=== PATIENT | male | born 1985 | race Caucasian/White ===

== ENCOUNTER 2019-12-21 07:54 | Observation (INO) | payer OTHER ==
[2019-12-21] MEDS ORDERED: SODIUM CHLORIDE 0.9% 1,000 ML IV STA (08:03)
[2019-12-21] MEDS ORDERED: HYDROmorphone 0.5 MG/0.5 ML SYRINGE IVP STA (08:03)
[2019-12-21] MEDS ORDERED: PANTOPRAZOLE 40 MG/10 ML VIAL IVP STA (08:03)
--- NOTE | 2019-12-21 08:06 | ED ---
GI Bleed HPI - General Stated complaint: chest discomfort/vomiting blood Time Seen by Provider: 12/21/19 07:57 Source: RN notes reviewed, old records reviewed - History of Present Illness Initial comments: Patient is a 34-year-old male presents emergency department today for complaints of nausea and vomiting intermittently for the past 3 weeks. He states that he was evaluated by overdose or started on Protonix and Zofran and this past week. Patient reports that he's had persistent vomiting and has not been able to follow-up with a GI doctor contacted GI doctor for follow-up. He also reports she's had some dark stools. Patient is not on blood thinners. He denies any history of alcohol use. He does report that he is an occasional smoker. He states that he has been very dehydrated. - Related Data Home Medications Medication Instructions Recorded Confirmed Omeprazole [PriLOSEC] 40 mg PO DAILY 12/21/19 12/21/19 Ondansetron [Zofran ODT] 4 mg PO Q8H PRN 12/21/19 12/21/19 Allergies Allergy/AdvReac Type Severity Reaction Status Date / Time No Known Allergies Allergy Verified 12/21/19 08:34 Review of Systems ROS Statement: Those systems with pertinent positive or pertinent negative responses have been documented in the HPI. ROS Other: All systems not noted in ROS Statement are negative. Past Medical History Past Medical History: No Reported History History of Any Multi-Drug Resistant Organisms: None Reported Past Surgical History: No Surgical Hx Reported Past Psychological History: No Psychological Hx Reported Smoking Status: Current every day smoker Past Alcohol Use History: Rare General Exam - General Exam Comments Initial Comments: Patient 4-year-old male. Alert and oriented 3. General appearance: alert, in no apparent distress Head exam: Present: atraumatic, normocephalic, normal inspection Eye exam: Present: normal appearance, PERRL, EOMI. Absent: scleral icterus, conjunctival injection, periorbital swelling ENT exam: Present: normal exam Neck exam: Present: normal inspection. Absent: tenderness, meningismus, lymphadenopathy Respiratory exam: Present: normal lung sounds bilaterally. Absent: respiratory distress, wheezes, rales, rhonchi, stridor Cardiovascular Exam: Present: regular rate, normal rhythm, normal heart sounds. Absent: systolic murmur, diastolic murmur, rubs, gallop, clicks GI/Abdominal exam: Present: soft, tenderness (epigastric tenderness), normal bowel sounds. Absent: distended, guarding, rebound, rigid Extremities exam: Present: normal inspection, full ROM, normal capillary refill. Absent: tenderness, pedal edema, joint swelling, calf tenderness Back exam: Present: normal inspection Neurological exam: Present: alert, oriented X3, CN II-XII intact Psychiatric exam: Present: normal affect, normal mood Skin exam: Present: warm, dry, intact, normal color. Absent: rash Course Vital Signs 12/21/19 08:03 Temperature 98.2 F Pulse Rate 71 Respiratory 18 Rate Blood Pressure 127/90 O2 Sat by Pulse 98 Oximetry Medical Decision Making - Medical Decision Making There is actually absent today for nausea and vomiting with epigastric abdominal pain for the past 3 weeks. Was seen at [facility] diagnosed gastritis and discharged with Protonix and Zofran this week. He reports isn't helping. Emergency emergency department with some bilious vomitus. The Patient labwork was repaired does have evidence of pancreatitis with lipase is 1300. Patient denies any history of alcohol use. Ultrasound of the gallbladder is completed showing fatty infiltration of the liver but no other acute process. Patient was informed of these results. Patient was admitted at this time with consult to GI. Patient will be remaining nothing by mouth. - Lab Data Result diagrams: 12/21/19 08:00 12/21/19 08:00 Lab Results 12/21/19 12/21/19 12/21/19 Range/Units 08:00 08:00 08:00 WBC 9.5 (3.8-10.6) k/uL RBC 4.98 (4.30-5.90) m/uL Hgb 14.7 (13.0-17.5) gm/dL Hct 44.6 (39.0-53.0) % MCV 89.6 (80.0-100.0) fL MCH 29.5 (25.0-35.0) pg MCHC 32.9 (31.0-37.0) g/dL RDW 12.4 (11.5-15.5) % Plt Count 327 (150-450) k/uL Neutrophils % 77 % Lymphocytes % 14 % Monocytes % 7 % Eosinophils % 1 % Basophils % 0 % Neutrophils # 7.3 (1.3-7.7) k/uL Lymphocytes # 1.3 (1.0-4.8) k/uL Monocytes # 0.6 (0-1.0) k/uL Eosinophils # 0.1 (0-0.7) k/uL Basophils # 0.0 (0-0.2) k/uL PT 11.1 (9.0-12.0) sec INR 1.1 (<1.2) APTT 21.7 L (22.0-30.0) sec Sodium 142 (137-145) mmol/L Potassium 3.7 (3.5-5.1) mmol/L Chloride 107 (98-107) mmol/L Carbon Dioxide 25 (22-30) mmol/L Anion Gap 10 mmol/L BUN 19 (9-20) mg/dL Creatinine 1.13 (0.66-1.25) mg/dL Est GFR (CKD-EPI)AfAm >90 (>60 ml/min/1.73 sqM) Est GFR (CKD-EPI)NonAf 84 (>60 ml/min/1.73 sqM) Glucose 117 H (74-99) mg/dL Calcium 8.9 (8.4-10.2) mg/dL Magnesium 2.2 (1.6-2.3) mg/dL Total Bilirubin 0.9 (0.2-1.3) mg/dL AST 21 (17-59) U/L ALT 23 (4-49) U/L Alkaline Phosphatase 54 (38-126) U/L Total Protein 6.9 (6.3-8.2) g/dL Albumin 4.2 (3.5-5.0) g/dL Lipase 1387 H (23-300) U/L Gastric Occult Blood (Negative) Stool Occult Blood (Negative) Blood Type Blood Type Confirm Blood Type Recheck Bld Type Recheck Status Antibody Screen Spec Expiration Date 12/21/19 12/21/19 12/21/19 Range/Units 08:00 08:06 08:14 WBC (3.8-10.6) k/uL RBC (4.30-5.90) m/uL Hgb (13.0-17.5) gm/dL Hct (39.0-53.0) % MCV (80.0-100.0) fL MCH (25.0-35.0) pg MCHC (31.0-37.0) g/dL RDW (11.5-15.5) % Plt Count (150-450) k/uL Neutrophils % % Lymphocytes % % Monocytes % % Eosinophils % % Basophils % % Neutrophils # (1.3-7.7) k/uL Lymphocytes # (1.0-4.8) k/uL Monocytes # (0-1.0) k/uL Eosinophils # (0-0.7) k/uL Basophils # (0-0.2) k/uL PT (9.0-12.0) sec INR (<1.2) APTT (22.0-30.0) sec Sodium (137-145) mmol/L Potassium (3.5-5.1) mmol/L Chloride (98-107) mmol/L Carbon Dioxide (22-30) mmol/L Anion Gap mmol/L BUN (9-20) mg/dL Creatinine (0.66-1.25) mg/dL Est GFR (CKD-EPI)AfAm (>60 ml/min/1.73 sqM) Est GFR (CKD-EPI)NonAf (>60 ml/min/1.73 sqM) Glucose (74-99) mg/dL Calcium (8.4-10.2) mg/dL Magnesium (1.6-2.3) mg/dL Total Bilirubin (0.2-1.3) mg/dL AST (17-59) U/L ALT (4-49) U/L Alkaline Phosphatase (38-126) U/L Total Protein (6.3-8.2) g/dL Albumin (3.5-5.0) g/dL Lipase (23-300) U/L Gastric Occult Blood (Negative) Stool Occult Blood Negative (Negative) Blood Type A Positive Blood Type Confirm A Positive Blood Type Recheck No Previous Record Bld Type Recheck Status CABO Indicated Antibody Screen NEGATIVE Spec Expiration Date 12/24/2019 - 229912/21/19 Range/Units 08:14 WBC (3.8-10.6) k/uL RBC (4.30-5.90) m/uL Hgb (13.0-17.5) gm/dL Hct (39.0-53.0) % MCV (80.0-100.0) fL MCH (25.0-35.0) pg MCHC (31.0-37.0) g/dL RDW (11.5-15.5) % Plt Count (150-450) k/uL Neutrophils % % Lymphocytes % % Monocytes % % Eosinophils % % Basophils % % Neutrophils # (1.3-7.7) k/uL Lymphocytes # (1.0-4.8) k/uL Monocytes # (0-1.0) k/uL Eosinophils # (0-0.7) k/uL Basophils # (0-0.2) k/uL PT (9.0-12.0) sec INR (<1.2) APTT (22.0-30.0) sec Sodium (137-145) mmol/L Potassium (3.5-5.1) mmol/L Chloride (98-107) mmol/L Carbon Dioxide (22-30) mmol/L Anion Gap mmol/L BUN (9-20) mg/dL Creatinine (0.66-1.25) mg/dL Est GFR (CKD-EPI)AfAm (>60 ml/min/1.73 sqM) Est GFR (CKD-EPI)NonAf (>60 ml/min/1.73 sqM) Glucose (74-99) mg/dL Calcium (8.4-10.2) mg/dL Magnesium (1.6-2.3) mg/dL Total Bilirubin (0.2-1.3) mg/dL AST (17-59) U/L ALT (4-49) U/L Alkaline Phosphatase (38-126) U/L Total Protein (6.3-8.2) g/dL Albumin (3.5-5.0) g/dL Lipase (23-300) U/L Gastric Occult Blood Positive (Negative) Stool Occult Blood (Negative) Blood Type Blood Type Confirm Blood Type Recheck Bld Type Recheck Status Antibody Screen Spec Expiration Date - Radiology Data Radiology results: report reviewed US of the gallbladder shows no acute findings. Heterogeneous hyperechoic appearance of the liver fevers by infiltration underlying hepatocellular disease. Correlate clinically with liver lab values. Disposition Clinical Impression: Pancreatitis Disposition: ADMITTED IP TO THIS [facility] Condition: Good Instructions (If sedation given, give patient instructions): Pancreatitis (ED) Is patient prescribed a controlled substance at d/c from ED?: No Referrals: None,Stated [Primary Care Provider] - 1-2 days Time of Disposition: 09:45
[2019-12-21] MEDS ORDERED: METOCLOPRAMIDE 5 MG/ML 2 ML VIAL IVP STA (08:21)
[2019-12-21] MEDS ORDERED: diphenhydrAMINE 50 MG/ML 1 ML VIAL IVP STA (08:21)
[2019-12-21] MEDS: SODIUM CHLORIDE 0.9% 1,000 ML IV SCH ×2 (08:21→19:21)
[2019-12-21 08:23] LABS: Basophils % (A) 0 %; Eosinophils # (A) 0.1 k/uL (0-0.7); Eosinophils % (A) 1 %; HCT 44.6 % (39.0-53.0); HGB 14.7 gm/dL (13.0-17.5); Lymphocytes # (A) 1.3 k/uL (1.0-4.8); Lymphocytes % (A) 14 %; MCH 29.5 pg (25.0-35.0); MCHC 32.9 g/dL (31.0-37.0); MCV 89.6 fL (80.0-100.0); Mean Platelet Volume 7.3; Monocytes # (A) 0.6 k/uL (0-1.0); Monocytes % (A) 7 %; Neutrophils # (A) 7.3 k/uL (1.3-7.7); Neutrophils % (A) 77 %; Platelet Count 327 k/uL (150-450); RBC 4.98 m/uL (4.30-5.90); RDW 12.4 % (11.5-15.5); WBC 9.5 k/uL (3.8-10.6)
[2019-12-21 08:35] LABS: INR 1.1 (<1.2); Prothrombin Time 11.1 sec (9.0-12.0)
[2019-12-21 08:41] LABS: ALT 23 U/L (4-49); AST 21 U/L (17-59); African American GFR (CKD) >90 (>60 ml/min/1.73 sqM); Albumin 4.2 g/dL (3.5-5.0); Alkaline Phosphatase 54 U/L (38-126); Anion Gap 10 mmol/L; Blood Urea Nitrogen 19 mg/dL (9-20); Calcium 8.9 mg/dL (8.4-10.2); Carbon Dioxide 25 mmol/L (22-30); Chloride 107 mmol/L (98-107); Glucose 117 mg/dL (74-99); Magnesium 2.2 mg/dL (1.6-2.3); Non-African American GFR(CKD) 84 (>60 ml/min/1.73 sqM); Potassium 3.7 mmol/L (3.5-5.1); Sodium 142 mmol/L (137-145); Total Bilirubin 0.9 mg/dL (0.2-1.3); Total Protein 6.9 g/dL (6.3-8.2)
[2019-12-21 08:44] LABS: Partial Thromboplastin Time 21.7 sec (22.0-30.0)
--- NOTE | 2019-12-21 09:41 | US ---
EXAMINATION TYPE: US gallbladder DATE OF EXAM: 12/21/2019 COMPARISON: NONE CLINICAL HISTORY: ab pain. Generalized abd pain; blood noted with vomiting x 3 weeks; diarrhea recent ly EXAM MEASUREMENTS: Liver Length: 13.3 cm Gallbladder Wall: 0.1 cm CBD: 0.4 cm Right Kidney: 10.21 x 6.4 x 4.7 cm Pancreas: Tail obscured by overlying bowel gas; hyperechoic appearance Liver: hyperechoic to right renal cortex suggests fatty liver Gallbladder: wnl Evidence for sonographic Vu's sign: no CBD: wnl Right Kidney: wnl Visualized liver is heterogeneously hyperechoic. No surrounding ascites. Evaluation for focal masses suboptimal due to the heterogeneity. Gallbladder seen without shadowing mobile gallstones. IMPRESSION: No acute findings are evident. Heterogeneous hyperechoic appearance of liver favors produ ct of diffuse fatty infiltration, underlying hepatocellular disease is not excluded. Correlate clinic ally and with liver lab values.
[2019-12-21] MEDS ORDERED: NALOXONE 0.4 MG/ML 1 ML VIAL IV PRN ×2 (09:46→11:34)
[2019-12-21] MEDS ORDERED: HYDROmorphone 0.5 MG/0.5 ML SYRINGE IVP PRN (09:46)
[2019-12-21] MEDS ORDERED: ACETAMINOPHEN TAB 325 MG TAB PO PRN (09:46)
[2019-12-21] MEDS ORDERED: KETOROLAC 30 MG/ML 1 ML VIAL IVP PRN (09:46)
[2019-12-21] MEDS ORDERED: IBUPROFEN 400 MG TAB PO PRN (09:46)
--- NOTE | 2019-12-21 10:01 | XR ---
EXAMINATION TYPE: XR KUB DATE OF EXAM: 12/21/2019 COMPARISON: NONE HISTORY: Pain and vomiting TECHNIQUE: One view abdominal series FINDINGS: The osseous structures are intact. The bowel gas pattern is nonspecific. Lung bases are clear. Roun ded density in the left upper quadrant nonspecific. IMPRESSION: 1. Nonspecific abdomen. Consider CT scan to assess for rounded density in the left upper quadrant.
--- NOTE | 2019-12-21 11:37 | P.HPIM ---
History of Present Illness H&P Date: 12/21/19 Chief Complaint: pain 34-year-old male presents emergency department today for complaints of nausea and vomiting intermittently for the past 3 weeks. Symptoms have been ongoing on and off for the past 3 years. He also has been having abdominal pain that is worse with food. Also has been experiencing acid burning behind his chest. No fevers or chills. He smokes marijuana on a daily basis. Denies alcohol use. He was never evaluated with an EGD in the past. In the emergency department his lipase was elevated at 1387. Abdominal ultrasound showed fatty liver infiltration with possible mass in the left side of abdomen. He was admitted for further evaluation and treatment of acute pancreatitis. Review of Systems Complete review of system performed, pertinent positives per HPI, otherwise negative Past Medical History Past Medical History: No Reported History History of Any Multi-Drug Resistant Organisms: None Reported Past Surgical History: No Surgical Hx Reported Past Psychological History: No Psychological Hx Reported Smoking Status: Current every day smoker Past Alcohol Use History: Rare - Past Family History Father History Unknown: Yes Mother Additional Family Medical History / Comment(s): Mother is obese. Medications and Allergies Home Medications Medication Instructions Recorded Confirmed Type Omeprazole [PriLOSEC] 40 mg PO DAILY 12/21/19 12/21/19 History Ondansetron [Zofran ODT] 4 mg PO Q8H PRN 12/21/19 12/21/19 History Allergies Allergy/AdvReac Type Severity Reaction Status Date / Time No Known Allergies Allergy Verified 12/21/19 08:34 Physical Exam Vitals: Vital Signs Temp Pulse Resp BP Pulse Ox 12/21/19 10:20 62 16 124/73 99 12/21/19 08:03 98.2 F 71 18 127/90 98 Intake and Output 12/20/19 12/21/19 12/21/19 22:59 06:59 14:59 Other: Weight 99.79 kg Constitutional: No acute distress, conversant, pleasant Eyes:Anicteric sclerae, moist conjunctiva, no lid-lag, PERRLA, ENMT: Oropharynx clear, no erythema, exudates Neck: Supple, FROM, no masses, or JVD, No carotid bruits, No thyromegaly Lungs: Clear to auscultation, Clear to percussion, Normal respiratory effort, no accessory muscle use Cardiovascular: Heart regular in rate and rhythm, No murmurs, gallops, or rubs, No peripheral edema Abdominal: Soft, tender especially in the epigastric area, no guarding, rebound or rigidity, Normoactive bowel sounds, No hepatomegaly, No splenomegaly, No pal pable mass Skin: Normal temperature, tone, texture, turgor, no induration, No subcutaneous nodules, No rash, lesions, No ulcers Extremities: No digital cyanosis, No clubbing, Pedal pulses intact and symmetrical, Radial pulses intact and symmetrical, No calf tenderness Psychiatric: Alert and oriented to person, place and time, appropriate affect, intact judgement Neuro: Muscles Strength 5/5 in all 4 extremities, Sensation to light touch grossly present throughout, Cranial nerves II-XII grossly intact, no focal sensory deficits Results CBC & Chem 7: 12/21/19 08:00 12/21/19 08:00 Labs: Abnormal Lab Results - Last 24 Hours (Table) 12/21/19 12/21/19 Range/Units 08:00 08:00 APTT 21.7 L (22.0-30.0) sec Glucose 117 H (74-99) mg/dL Lipase 1387 H (23-300) U/L Assessment and Plan Plan: Acute pancreatitis IV fluids Pain control with Dilaudid IV Nothing by mouth Lipase in am Intractable nausea and vomiting with associated GERD IV protonix Rule out cyclic vomiting syndrome Consult GI for EGD Zofran when necessary Questionable left abdominal mass On ultrasound CT abdomen and pelvis with IV contrast Admit to inpatient, expected length of stay more than 2 more nights Anticipated disposition: Home Anticipated discharge: 2-3 days
[2019-12-21] MEDS: ONDANSETRON 4 MG/2 ML VIAL IVP PRN (13:49)
--- NOTE | 2019-12-21 15:05 | CONS ---
CONSULTATION DATE OF SERVICE: December 21, 2019. REQUESTING PHYSICIAN: Dr. Snyder. REASON FOR CONSULTATION: Epigastric pain, nausea, vomiting for the last 4 weeks duration. HISTORY OF PRESENT ILLNESS: The patient is a 34-year-old pleasant white male came to the emergency room complaining of severe nausea, vomiting for the last 4 weeks duration. He has severe epigastric discomfort and heartburn. He denies any dysphagia or odynophagia. He has been throwing up at least once or twice a day. He went to the emergency room at [facility] 2 days ago and was sent home with antiemetics. In the ER, was noted to have elevated lipase at 1387. He has been taking Motrin and Aleve for chronic back pain and headaches for the last several months. Denies any prior history of peptic ulcer disease. No prior history of pancreatitis. In a couple of episodes of emesis, he was noted to have coffee-grounds emesis and hence we are consulted. PAST MEDICAL HISTORY: Unremarkable. Past surgical history unremarkable. MEDICATIONS: At home none. ALLERGIES: No known drug allergies. SOCIAL HISTORY: Chronic smoker. Rarely drinks alcohol. FAMILY HISTORY: Father healthy. Mother obese. REVIEW OF SYSTEMS: CARDIOPULMONARY: No chest pain, shortness of breath. no dysuria or hematuria. MUSCULOSKELETAL unremarkable. Skin unremarkable. Endocrine unremarkable. Psychiatric unremarkable. NEUROLOGY: Unremarkable. ENT/VISION: Unremarkable. CONSTITUTIONAL: No recent weight loss. No fever, chills, night sweats. PHYSICAL EXAMINATION: Blood pressure is 125/73, pulse rate 82, temperature 98.2. HEENT examination unremarkable. Conjunctivae pink. Sclerae anicteric. Oral cavity no lesions. NECK no JVD or lymph node enlargement. Chest was clear to auscultation. HEART: Regular rate and rhythm. ABDOMEN: Soft. There was tenderness in the epigastric area. Bowel sounds are positive. No organomegaly. EXTREMITIES: No pedal edema. Skin no rashes. NEUROLOGIC: Alert and oriented x3. No focal deficits. LABS: WBC 9.5, hemoglobin 14.7, platelets normal. Basic metabolic panel is normal limits. Lipase is 1387. ALT, AST, T-bilirubin and alkaline phosphatase are within normal limits. Ultrasound of the gallbladder did show normal-appearing gallbladder with no negative Vu sign. CBD was normal and mild fatty liver noted. No gallstones seen. IMPRESSION: This is a patient who presents to hospital with chronic nausea, vomiting for the last 4 weeks duration with some episodes of coffee-ground emesis. He is noted to have mild elevation of lipase consistent with mild acute pancreatitis. He has been taking Motrin and Aleve for chronic headaches. Rule out possibility of peptic ulcer disease causing his symptoms and acute pancreatitis. No history of alcohol use. Normal serum transaminases makes it unlikely we are dealing with biliary pancreatitis. RECOMMENDATIONS: 1. Clear liquid diet. 2. Repeat amylase and lipase tomorrow. 3. Continue IV Protonix. 4. EGD tomorrow. 5. We will follow with you closely. Thank you for this consultation. MMODL / IJN: [id number] /
--- NOTE | 2019-12-21 15:16 | CT ---
EXAMINATION TYPE: CT abdomen pelvis w con DATE OF EXAM: 12/21/2019 COMPARISON: None INDICATION: Vomiting blood DLP: 1672.9 mGycm, Automated exposure control for dose reduction was used. CONTRAST: 100 mL of Isovue 300. Study performed without Oral Contrast TECHNIQUE: Axial images were obtained from above the diaphragm to the pubic rami in the axial plane a t 5 mm thick sections. Reconstructed images are reviewed on the computer in the coronal plane. FINDINGS: Limited CT sections are obtained the lung bases. The lung bases are clear. CT ABDOMEN: Liver: Normal Spleen: Normal Pancreas: Normal. No suspicious inflammatory changes or masses or cysts pancreas are evident. No trejo ge suggest acute pancreatitis based on CT. Adrenal glands: The adrenal glands are normal. Gallbladder: Normal Kidneys: No masses are evident. No hydronephrosis is present. No cysts are present. Delayed images were obtained through the kidneys, which remain unremarkable. Aorta: Vascular calcification is within the aorta. Inferior vena cava: Normal. CT PELVIS: Loops of bowel within the abdomen and pelvis are normal. There are a few diverticular changes wit hin the colon. Study is performed without oral contrast limiting bowel evaluation. Stomach appears no rmal. Appendix: Normal as visualized. Urinary bladder: Normal. Genitourinary structures: Prostate is normal Osseous structures: No suspicious lytic or sclerotic lesions. IMPRESSIONS: 1. Normal CT abdomen pelvis
[2019-12-21] MEDS: MORPHINE SULFATE 4 MG/ML SYRINGE IV PRN ×2 (15:47→20:40)
[2019-12-21] MEDS: PANTOPRAZOLE 40 MG/10 ML VIAL IVP SCH (22:25)
[2019-12-22] MEDS: MORPHINE SULFATE 4 MG/ML SYRINGE IV PRN ×4 (00:25→20:02)
[2019-12-22] MEDS: SODIUM CHLORIDE 0.9% 1,000 ML IV SCH ×4 (06:15→20:03)
[2019-12-22] MEDS: ONDANSETRON 4 MG/2 ML VIAL IVP PRN ×2 (06:16→16:04)
[2019-12-22 06:19] LABS: ALT 20 U/L (4-49); AST 19 U/L (17-59); African American GFR (CKD) >90 (>60 ml/min/1.73 sqM); Albumin 3.6 g/dL (3.5-5.0); Alkaline Phosphatase 47 U/L (38-126); Amylase 50 U/L (30-110); Anion Gap 6 mmol/L; Blood Urea Nitrogen 16 mg/dL (9-20); Calcium 8.6 mg/dL (8.4-10.2); Carbon Dioxide 27 mmol/L (22-30); Chloride 108 mmol/L (98-107); Glucose 86 mg/dL (74-99); Non-African American GFR(CKD) >90 (>60 ml/min/1.73 sqM); Sodium 141 mmol/L (137-145); Total Bilirubin 0.8 mg/dL (0.2-1.3); Total Protein 6.1 g/dL (6.3-8.2)
[2019-12-22] MEDS ORDERED: PANTOPRAZOLE 40 MG TABLET PO SCH (07:30)
[2019-12-22] MEDS: PANTOPRAZOLE 40 MG/10 ML VIAL IVP SCH ×2 (08:12→20:03)
[2019-12-22] MEDS: LACTATED RINGERS 1,000 ML IV SCH ×2 (08:13→14:20)
[2019-12-22] MEDS ORDERED: METOCLOPRAMIDE 5 MG/ML 2 ML VIAL IVP SCH (08:45)
[2019-12-22] MEDS ORDERED: PROCHLORPERAZINE SUPPOSITORY 25 MG SUPP RECTAL PRN (09:32)
--- NOTE | 2019-12-22 10:19 | P.PN ---
Subjective Progress Note Date: 12/22/19 Principal diagnosis: N/v and abdominal pain Patient is still having intractable nausea and vomiting. He is not able to keep any food down. Still having upper abdominal pain as well. No fevers or chills. Objective - Vital Signs Vital signs: Vital Signs Temp 98.1 F 12/22/19 07:00 Pulse 52 L 12/22/19 07:00 Resp 18 12/22/19 07:00 BP 126/93 12/22/19 07:00 Pulse Ox 99 12/22/19 07:00 Intake & Output 12/21/19 12/22/19 12/22/19 18:59 06:59 18:59 Weight 99.79 kg - Exam Constitutional: No acute distress, conversant, pleasant Eyes:Anicteric sclerae, moist conjunctiva, no lid-lag, PERRLA, ENMT: Oropharynx clear, no erythema, exudates Neck: Supple, FROM, no masses, or JVD, No carotid bruits, No thyromegaly Lungs: Clear to auscultation, Clear to percussion, Normal respiratory effort, no accessory muscle use Cardiovascular: Heart regular in rate and rhythm, No murmurs, gallops, or rubs, No peripheral edema Abdominal: Soft, tender especially in the epigastric area, no guarding, rebound or rigidity, Normoactive bowel sounds, No hepatomegaly, No splenomegaly, No palpable mass Skin: Normal temperature, tone, texture, turgor, no induration, No subcutaneous nodules, No rash, lesions, No ulcers Extremities: No digital cyanosis, No clubbing, Pedal pulses intact and symmetrical, Radial pulses intact and symmetrical, No calf tenderness Psychiatric: Alert and oriented to person, place and time, appropriate affect, intact judgement Neuro: Muscles Strength 5/5 in all 4 extremities, Sensation to light touch grossly present throughout, Cranial nerves II-XII grossly intact, no focal sensory deficits - Labs CBC & Chem 7: 12/21/19 08:00 12/22/19 05:43 Labs: Abnormal Lab Results - Last 24 Hours (Table) 12/21/19 12/22/19 Range/Units 08:00 05:43 Chloride 108 H (98-107) mmol/L Total Protein 6.1 L (6.3-8.2) g/dL Amylase 330 H* (30-110) U/L Assessment and Plan Plan: Acute pancreatitis Resolved, continue IV fluids Pain control with Dilaudid IV Nothing by mouth Lipase normalized Intractable nausea and vomiting with associated GERD IV protonix Zofran when necessary Add Compazine rectally when necessary Rule out cyclic vomiting syndrome GI to do EGD today Anticipated disposition: Home Anticipated discharge: 2-3 days
[2019-12-22] MEDS ORDERED: PROMETHAZINE INJ 50 MG in SODIUM CHLORIDE 0.9% 50 ML IVPB PRN (11:49)
[2019-12-22] MEDS ORDERED: PROMETHAZINE INJ 25 MG in SODIUM CHLORIDE 0.9% 50 ML IVPB PRN (12:32)
[2019-12-22] MEDS ORDERED: IV FLUID CONTINUATION 1,000 ML IV ONE (13:46)
[2019-12-22] MEDS ORDERED: fentaNYL (PF) 50 MCG/ML 2 ML AMP ONE (13:48)
[2019-12-22] MEDS ORDERED: MIDAZOLAM 2 MG/2 ML VIAL ONE (13:48)
[2019-12-22] MEDS ORDERED: PROPOFOL 10 MG/ML 20 ML VIAL IV ONE (13:48)
[2019-12-22] MEDS ORDERED: LIDOCAINE 1% INJ 10MG/ML (20 ML MDV) ONE (13:48)
--- NOTE | 2019-12-22 15:08 | P.PCN ---
Date of Procedure: 12/22/19 Procedure(s) Performed: BRIEF HISTORY: Patient is a 34-year-old, pleasant, white male admitted hospital with severe epigastric pains with nausea vomiting for the last 4 weeks' duration. He came into the emergency room yesterday and was sent to have mild elevation of lipase consistent with mild acute pancreatitis. Because of the persistent symptoms he scheduled for an upper endoscopy today.. PROCEDURE PERFORMED: Esophagogastroduodenoscopy with biopsy. PREOPERATIVE DIAGNOSIS: Epigastric pain/nausea vomiting or 4 weeks' duration. IV sedation per anesthesia. PROCEDURE: After informed consent was obtained, the patient was brought into the endoscopy unit. IV sedation was administered by Anesthesia under continuous monitoring. Initially the Olympus GIF-140 video endoscope was inserted into the mouth. Esophagus intubated without any difficulty. It was gradually advanced into the stomach and duodenum and carefully examined. The bulb had mild duodenitis and the second part of the duodenum appeared normal. The scope at this time was withdrawn to the stomach, adequately insufflated with air, and upon careful examination, mucosa of the antrum, had mild diffuse gastritis and biopsies were done from this area. The body, cardia and the fundus appeared normal. The scope was then withdrawn into the esophagus. The GE junction was located at 39 cm from the incisors. There were linear erosions with exudates noted in the distal esophagus consistent with LA grade C reflux esophagitis. Rest of esophagus appeared normal and the patient tolerated the procedure well. IMPRESSION: 1. Severe erosions with exudates noted in the distal esophagus consistent with LA grade C reflux esophagitis. 2. Mild antral gastritis and duodenitis. RECOMMENDATIONS: The findings of this examination were discussed with the patient. He will be continued on Protonix 40 minute grams twice daily. Diet will be advanced as tolerated. Await biopsy results..
[2019-12-23 01:55] VITALS: TEMP 98.6
[2019-12-23] MEDS: SODIUM CHLORIDE 0.9% 1,000 ML IV SCH ×2 (02:38→11:25)
[2019-12-23] MEDS: PANTOPRAZOLE 40 MG/10 ML VIAL IVP SCH (07:20)
[2019-12-23 08:17] LABS: Basophils % (A) 0 %; Eosinophils # (A) 0.2 k/uL (0-0.7); Eosinophils % (A) 3 %; HCT 42.1 % (39.0-53.0); HGB 13.5 gm/dL (13.0-17.5); Lymphocytes # (A) 1.5 k/uL (1.0-4.8); Lymphocytes % (A) 22 %; MCH 29.4 pg (25.0-35.0); MCHC 32.2 g/dL (31.0-37.0); MCV 91.5 fL (80.0-100.0); Mean Platelet Volume 7.1; Monocytes # (A) 0.6 k/uL (0-1.0); Monocytes % (A) 8 %; Neutrophils # (A) 4.2 k/uL (1.3-7.7); Neutrophils % (A) 64 %; Platelet Count 254 k/uL (150-450); RDW 12.2 % (11.5-15.5); WBC 6.6 k/uL (3.8-10.6)
[2019-12-23 08:19] VITALS: BP 153/83; PULSE 60; RESP 16
[2019-12-23 08:27] LABS: ALT 20 U/L (4-49); AST 17 U/L (17-59); African American GFR (CKD) >90 (>60 ml/min/1.73 sqM); Albumin 3.4 g/dL (3.5-5.0); Alkaline Phosphatase 43 U/L (38-126); Anion Gap 7 mmol/L; Blood Urea Nitrogen 13 mg/dL (9-20); Calcium 8.2 mg/dL (8.4-10.2); Carbon Dioxide 27 mmol/L (22-30); Chloride 105 mmol/L (98-107); Glucose 84 mg/dL (74-99); Magnesium 1.9 mg/dL (1.6-2.3); Non-African American GFR(CKD) >90 (>60 ml/min/1.73 sqM); Sodium 139 mmol/L (137-145); Total Bilirubin 0.9 mg/dL (0.2-1.3); Total Protein 5.8 g/dL (6.3-8.2)
--- NOTE | 2019-12-23 12:20 | P.DS ---
Providers Date of admission: 12/21/19 09:46 Expected date of discharge: 12/23/19 Attending physician: Estrella Snyder MD Consults: 12/21/19 09:46 Consult Physician Stat Consulting Provider: Stefani Kathleen Consult Reason/Comments: pancreatitis, gastritis Do you want consulting provider notified?: Yes Primary care physician: Stated None Hospital Course: 34-year-old male presents emergency department today for complaints of nausea and vomiting intermittently for the past 3 weeks. Symptoms have been ongoing on and off for the past 3 years. He also has been having abdominal pain that is worse with food. Also has been experiencing acid burning behind his chest. No fevers or chills. He smokes marijuana on a daily basis. Denies alcohol use. He was never evaluated with an EGD in the past. In the emergency department his lipase was elevated at 1387. Abdominal ultrasound showed fatty liver infiltration with possible mass in the left side of abdomen. He was admitted for further evaluation and treatment of acute pancreatitis. Patient was started on IV fluids. Computed tomography scan of the abdomen and pelvis was ordered and that did not show any acute process. Lipase normalized with treatment. Pain was controlled with opiates. Patient was seen by GI who did a upper GI endoscopy which showed severe ulcerative esophagitis due to severe vomiting and acid reflux. It also showed mild antral gastritis and duodenitis. Patient was started on Protonix, he was treated symptomatically with Zofran as well. Due to his daily use of marijuana he was told that his symptoms are most likely secondary to cyclic vomiting syndrome, he was strongly advised to quit using marijuana. He is currently able to eat and hold things down. He'll be discharged home in a stable condition. He was instructed to follow-up with GI and her primary care physician as well. Time for discharge 35 minutes. Patient Condition at Discharge: Good Plan - Discharge Summary Discharge Rx Participant: Yes New Discharge Prescriptions: New Mag Hydrox/Al Hydrox/Simeth [Maalox] 15 ml PO Q6H PRN 15 Days #300 ml PRN Reason: Pain Pantoprazole Sodium [Protonix] 40 mg PO BID 30 Days #60 tablet. Continue Ondansetron [Zofran ODT] 4 mg PO Q8H PRN 20 Days #50 tab PRN Reason: Nausea Discontinued Omeprazole [PriLOSEC] 40 mg PO DAILY Discharge Medication List Mag Hydrox/Al Hydrox/Simeth [Maalox] 15 ml PO Q6H PRN 15 Days #300 ml 12/23/19 [Rx] Ondansetron [Zofran ODT] 4 mg PO Q8H PRN 20 Days #50 tab 12/23/19 [Rx] Pantoprazole Sodium [Protonix] 40 mg PO BID 30 Days #60 tablet. 12/23/19 [Rx] Follow up Appointment(s)/Referral(s): None,Stated [Primary Care Provider] - 1-2 days Loreta Mcneil NPC [Nurse Practitioner] - 10 Days (F/U EGD biopsy, pancreatitis) Patient Instructions/Handouts: Pancreatitis (ED)
[2019-12-23 12:54] VITALS: BMI 35.5
[2019-12-23] MEDS: LACTATED RINGERS 1,000 ML IV SCH (13:01)
--- NOTE | 2019-12-23 17:08 | PN ---
PROGRESS NOTE DATE OF DICTATION: 12/23/2019 This patient is a 34-year-old pleasant white male admitted to the hospital with severe epigastric pain, nausea, vomiting for the last one month duration. He had an upper endoscopy yesterday that showed severe reflux esophagitis and gastritis. He was on Protonix 40 mg twice daily, doing much better today. Tolerating diet well. Abdominal pain has significantly improved. No further episodes of nausea, vomiting. PHYSICAL EXAMINATION: Blood pressure is 153/83, pulse rate is 60, temperature 98.6. HEENT examination unremarkable. Conjunctivae pink. Sclerae anicteric. Oral cavity no lesions. NECK: No JVD or lymph node enlargement. CHEST: Clear to auscultation. HEART: Regular rate and rhythm. ABDOMEN: Soft. Mild tenderness in the epigastric area. Rest of the abdomen benign. EXTREMITIES: No pedal edema. NEUROLOGIC: Alert and oriented x3. No focal deficits. LABS: Labs from today show WBC 6.6, hemoglobin 13.5, platelets normal. Rest of the labs are within normal limits. IMPRESSION: 1. Severe epigastric pain, nausea, vomiting of one month duration. EGD revealed severe reflux esophagitis. On Protonix 40 mg twice daily and doing better. 2. Pancreatitis with improved amylase and lipase. RECOMMENDATIONS: 1. Continue Protonix 40 mg twice daily. 2. Diet modification. 3. Anti-reflux measures. 4. He can follow up in the office in 3-4 weeks. Thank you for this consultation. MMODL / PEDRON: [id number] /
--- NOTE | 2019-12-24 17:10 | CDI ---
Documentation Clarification Form Date: 12/24/19 From: Stella Rossi CCS Phone: If you have a question about this query, please contact Julienne Honeycutt, Student Services Advisor at [phone] between 8am and 5pm. Admit Date: 12/21/19 Discharge Date:12/23/19 Patient Name: Demarco Goodwin Visit Number: [id number] ATTENTION: The Clinical Documentation Specialists (CDI) and [facility] Coding Staff appreciate your assistance in clarifying documentation. Please respond to the clarification below the line at the bottom and electronically sign. The CDI & [facility] Coding staff will review the response and follow-up if needed. Please note: Queries are made part of the Legal Health Record. If you have any questions, please contact the author of this message via ITS. Dear Dr. Snyder, Vomiting blood is documented in the ED notes. Patient history/risk factors: Acute pancreatitis, GERD, Gastritis, Duodenitis, Esophagitis Clinical Indicators: Vomiting blood EGD findings: Severe erosions with exudates noted in the distal esophagus consistent with LA grade C reflux esophagitis. 2.Mild antral gastritis and duodenitis. Labs: 12/20- Gastric Occult Blood - Positive Other Clinical Indicators: Treatment: Protonix 40 mg IV Consults: Frannie In your professional opinion, can you please clarify the underlying cause of GI bleed if known? Gastritis with bleeding Esophageal ulcer with bleeding GI bleed ruled out Other, please specify Unable to determine Esophageal ulcer with bleeding MTDD
== END 2019-12-23 13:35 | disposition home or self-care (01) ==
LOC: EC 07:54 → 4SSUR 09:46 → INTOOBSV 09:46 → 4SSUR 12-22 14:13 → UNDODISIN 12-23 13:35
PROVIDERS: ADMIT Internal Medicine; ATTEND Internal Medicine
DX: K85.90 Acute pancreatitis without necrosis or infection, unspecified (principal); K29.51 Unspecified chronic gastritis with bleeding; K21.0 Gastro-esophageal reflux disease with esophagitis; K22.11 Ulcer of esophagus with bleeding; K29.80 Duodenitis without bleeding; F17.200 Nicotine dependence, unspecified, uncomplicated; E86.0 Dehydration; G89.29 Other chronic pain; M54.9 Dorsalgia, unspecified; Z83.49 Family history of other endocrine, nutritional and metabolic diseases; Z20.818 Contact with and (suspected) exposure to other bacterial communicable diseases; R11.2 Nausea with vomiting, unspecified; Z79.899 Other long term (current) drug therapy
CPT/HCPCS: 96376 ×2; 96361; 96365; 96375; 99285; 36415; 97161; 86900; 86901; 88305; 80053 ×3; 82150 ×2; 83690 ×2; 83735 ×2; 85025 ×2; 85610; 85730; 86850; 82272; 82271; 74018; 76705; 74177; 43239; G0378 ×3; U0003; J2250; J2270 ×2; J1200; J2550; J2765; J2405 ×2; J2001; J3010; J2704; C9113 ×3; J1170; Q9967

== ENCOUNTER 2019-12-31 11:38 | Emergency (ER) | payer OTHER ==
[2019-12-31] MEDS ORDERED: ONDANSETRON 4 MG/2 ML VIAL IVP STA ×2 (11:43→12:48)
[2019-12-31] MEDS ORDERED: SODIUM CHLORIDE 0.9% 2,000 ML IV STA (11:43)
[2019-12-31 11:47] VITALS: RESP 18
[2019-12-31] MEDS ORDERED: diphenhydrAMINE 50 MG/ML 1 ML VIAL IVP STA (11:53)
[2019-12-31] MEDS ORDERED: METOCLOPRAMIDE 5 MG/ML 2 ML VIAL IVP STA (11:53)
[2019-12-31] MEDS ORDERED: HYDROmorphone 0.5 MG/0.5 ML SYRINGE IVP STA ×2 (11:54→12:48)
--- NOTE | 2019-12-31 12:16 | ED ---
General Adult HPI - General Chief complaint: Chest Pain Stated complaint: Vomiting, chest pain Time Seen by Provider: 12/31/19 11:43 Source: patient, EMS, RN notes reviewed Mode of arrival: EMS Limitations: no limitations - History of Present Illness Initial comments: 34-year-old male presents emergency Department with chief complaint of abdominal pain, chest pain. Patient states symptoms started last couple days. He had a recent hospitalization for acute pancreatitis. Patient denies being a drinker. Patient states they unsure why he had acute pancreatitis. Patient states his emesis is been very dark. Patient denies fever, chills, headache. He has no complaints shortness of breath. No diarrhea no melena. - Related Data Previous Rx's Medication Instructions Recorded Mag Hydrox/Al Hydrox/Simeth 15 ml PO Q6H PRN 15 Days #300 ml 12/23/19 [Maalox] Ondansetron [Zofran ODT] 4 mg PO Q8H PRN 20 Days #50 tab 12/23/19 Pantoprazole Sodium [Protonix] 40 mg PO BID 30 Days #60 tablet. 12/23/19 Omeprazole [PriLOSEC] 40 mg PO DAILY #14 cap 12/31/19 Ondansetron Odt [Zofran Odt] 8 mg PO Q8HR #15 tab 12/31/19 Allergies Allergy/AdvReac Type Severity Reaction Status Date / Time No Known Allergies Allergy Verified 12/31/19 12:21 Review of Systems ROS Statement: Those systems with pertinent positive or pertinent negative responses have been documented in the HPI. ROS Other: All systems not noted in ROS Statement are negative. Past Medical History Past Medical History: No Reported History Additional Past Medical History / Comment(s): Recently diagnosed with gastritis, past pancreatitis, chronic lower back pain History of Any Multi-Drug Resistant Organisms: None Reported Past Surgical History: No Surgical Hx Reported Past Psychological History: Depression Smoking Status: Current every day smoker Past Alcohol Use History: Rare Past Drug Use History: None Reported - Past Family History Father History Unknown: Yes Mother Additional Family Medical History / Comment(s): Mother is obese. General Exam General appearance: alert, in no apparent distress Head exam: Present: atraumatic, normocephalic, normal inspection ENT exam: Present: normal exam, mucous membranes moist Neck exam: Present: normal inspection. Absent: tenderness, meningismus, lymphadenopathy Respiratory exam: Present: normal lung sounds bilaterally. Absent: respiratory distress, wheezes, rales, rhonchi, stridor Cardiovascular Exam: Present: regular rate, normal rhythm, normal heart sounds. Absent: systolic murmur, diastolic murmur, rubs, gallop, clicks GI/Abdominal exam: Present: soft, tenderness (Mild epigastric minimal abdominal tenderness), normal bowel sounds. Absent: distended, guarding, rebound, rigid Neurological exam: Present: alert, oriented X3 Skin exam: Present: warm, dry, intact, normal color. Absent: rash Course Vital Signs 12/31/19 11:39 Temperature 98.7 F Pulse Rate 85 Respiratory 18 Rate Blood Pressure 132/89 O2 Sat by Pulse 97 Oximetry - Reevaluation(s) Reevaluation #1: 12/31/19 13:22 Patient reevaluated and updated on results. Patient states pain is resolved. Nausea is under control no recurrent emesis. Medical Decision Making - Medical Decision Making 34 show male presented for nausea vomiting. Patient had recent hospitalization for acute pancreatitis. A cardiac enzymes are within normal limits at this time. Patient's improved after antiemetics. He does admit that he has not been taking his Protonix because it makes him sick. Patient states that he is mostly medication as he had a recent EGD showed severe gastritis. Patient discharged on omeprazole. Patient follow-up with GI return for any worsening symptoms. - Lab Data Result diagrams: 12/31/19 12:12 12/31/19 12:12 Lab Results 12/31/19 12/31/19 12/31/19 Range/Units 12:12 12:12 12:12 WBC 9.2 (3.8-10.6) k/uL RBC 5.32 (4.30-5.90) m/uL Hgb 15.9 (13.0-17.5) gm/dL Hct 46.7 (39.0-53.0) % MCV 87.9 (80.0-100.0) fL MCH 29.9 (25.0-35.0) pg MCHC 34.0 (31.0-37.0) g/dL RDW 12.3 (11.5-15.5) % Plt Count 331 (150-450) k/uL Neutrophils % 78 % Lymphocytes % 13 % Monocytes % 6 % Eosinophils % 2 % Basophils % 0 % Neutrophils # 7.2 (1.3-7.7) k/uL Lymphocytes # 1.2 (1.0-4.8) k/uL Monocytes # 0.6 (0-1.0) k/uL Eosinophils # 0.1 (0-0.7) k/uL Basophils # 0.0 (0-0.2) k/uL Sodium 138 (137-145) mmol/L Potassium 3.7 (3.5-5.1) mmol/L Chloride 106 (98-107) mmol/L Carbon Dioxide 21 L (22-30) mmol/L Anion Gap 11 mmol/L BUN 15 (9-20) mg/dL Creatinine 1.18 (0.66-1.25) mg/dL Est GFR (CKD-EPI)AfAm >90 (>60 ml/min/1.73 sqM) Est GFR (CKD-EPI)NonAf 79 (>60 ml/min/1.73 sqM) Glucose 122 H (74-99) mg/dL Calcium 9.4 (8.4-10.2) mg/dL Total Bilirubin 1.0 (0.2-1.3) mg/dL AST 21 (17-59) U/L ALT 30 (4-49) U/L Alkaline Phosphatase 58 (38-126) U/L Troponin I <0.012 (0.000-0.034) ng/mL Total Protein 6.9 (6.3-8.2) g/dL Albumin 4.2 (3.5-5.0) g/dL Amylase 80 (30-110) U/L Lipase 191 (23-300) U/L Disposition Clinical Impression: Nausea & vomiting, Gastritis Disposition: HOME SELF-CARE Condition: Stable Instructions (If sedation given, give patient instructions): Gastritis (ED) Additional Instructions: Please return to the Emergency Department if symptoms worsen or any other concerns. Prescriptions: Omeprazole [PriLOSEC] 40 mg PO DAILY #14 cap Ondansetron Odt [Zofran Odt] 8 mg PO Q8HR #15 tab Is patient prescribed a controlled substance at d/c from ED?: No Referrals: None,Stated [Primary Care Provider] - 1-2 days Chi Hayward MD [STAFF PHYSICIAN] - 1-2 days Time of Disposition: 13:24
[2019-12-31 12:25] LABS: Basophils % (A) 0 %; Eosinophils # (A) 0.1 k/uL (0-0.7); Eosinophils % (A) 2 %; HCT 46.7 % (39.0-53.0); HGB 15.9 gm/dL (13.0-17.5); Lymphocytes # (A) 1.2 k/uL (1.0-4.8); Lymphocytes % (A) 13 %; MCH 29.9 pg (25.0-35.0); MCV 87.9 fL (80.0-100.0); Mean Platelet Volume 7.2; Monocytes # (A) 0.6 k/uL (0-1.0); Monocytes % (A) 6 %; Neutrophils # (A) 7.2 k/uL (1.3-7.7); Neutrophils % (A) 78 %; Platelet Count 331 k/uL (150-450); RBC 5.32 m/uL (4.30-5.90); RDW 12.3 % (11.5-15.5); WBC 9.2 k/uL (3.8-10.6)
[2019-12-31 12:33] LABS: ALT 30 U/L (4-49); AST 21 U/L (17-59); African American GFR (CKD) >90 (>60 ml/min/1.73 sqM); Albumin 4.2 g/dL (3.5-5.0); Alkaline Phosphatase 58 U/L (38-126); Amylase 80 U/L (30-110); Anion Gap 11 mmol/L; Blood Urea Nitrogen 15 mg/dL (9-20); Calcium 9.4 mg/dL (8.4-10.2); Carbon Dioxide 21 mmol/L (22-30); Chloride 106 mmol/L (98-107); Glucose 122 mg/dL (74-99); Non-African American GFR(CKD) 79 (>60 ml/min/1.73 sqM); Potassium 3.7 mmol/L (3.5-5.1); Sodium 138 mmol/L (137-145); Total Protein 6.9 g/dL (6.3-8.2)
[2019-12-31] MEDS ORDERED: PANTOPRAZOLE 40 MG/10 ML VIAL IVP STA (12:48)
[2019-12-31 13:34] LABS: Appearance,Urine Clear (Clear); Bilirubin,Urine Negative (Negative); Blood,Urine Negative (Negative); Color,Urine Yellow; Glucose,Urine (UA) Negative (Negative); Ketones,Urine Trace (Negative); Leukocyte Esterase,Urine Negative (Negative); Nitrite,Urine Negative (Negative); Protein,Urine Trace (Negative); Specific Gravity,Urine 1.024 (1.001-1.035)
[2019-12-31 13:40] VITALS: BP 112/85; PULSE 68; TEMP 98
== END 2019-12-31 13:41 | disposition home or self-care (01) ==
LOC: EC 11:38
DX: K29.70 Gastritis, unspecified, without bleeding (principal); F17.200 Nicotine dependence, unspecified, uncomplicated; R07.9 Chest pain, unspecified
CPT/HCPCS: 36415; 93005; 80053; 82150; 83690; 84484; 85025; 81003; 99285; 96374; 96375 ×4; 96376; 96361 ×2; J1200; J2765; J2405; C9113; J1170